=== PATIENT | female | born 1955 | race Caucasian/White ===

== ENCOUNTER → 2020-06-30 08:11 | Outpatient (CLI) | payer MEDICARE, OTHER, SELFPAY ==
[2020-06-30 08:38] LABS: Add Manual Diff / Slide Review NO; Basophils Absolute Auto 0 /uL (0-100); Basophils Percent Auto 1.1 % (0-2); Eosinophils Absolute Auto 100 /uL (0-450); Eosinophils Percent Auto 2.1 % (2-4); Hematocrit 39.8 % (36-46); Hemoglobin 13.5 g/dL (12.0-16.0); Lymphocytes Absolute Auto 1200 /uL (1100-4500); Lymphocytes Percent Auto 27.7 % (25-40); Mean Corpuscular HGB Conc 33.9 % (30-36); Mean Corpuscular Hemoglobin 31.9 PG (26-34); Monocytes Absolute Auto 400 /uL (0-900); Monocytes Percent Auto 9.3 % (3-14); Neutrophils Absolute Auto 2600 /uL (1500-7000); Neutrophils Percent Auto 59.8 % (50-75); Platelet Count 185 X10^3/uL (150-400); Red Blood Cell Count 4.23 X10^6/uL (4.0-5.2); Red Cell Distribution Width 12.4 % (11.6-14.8); White Blood Cell Count 4.4 X10^3/uL (4.5-11.0)
[2020-06-30 09:18] LABS: Alanine Aminotransferase 28 IU/L (<35); Albumin 4.6 g/dL (3.5-5.0); Albumin Globulin Ratio 1.6 (1.0-2.8); Alkaline Phosphatase 95 U/L (38-126); Aspartate Aminotransferase 35 IU/L (14-36); Bilirubin Total 0.8 mg/dL (0.2-1.3); Blood Urea Nitrogen 16 mg/dL (7-17); Calcium 9.8 mg/dL (8.4-10.2); Carbon Dioxide 32 mmol/L (22-32); Chloride 102 mmol/L (98-107); Cholesterol 169 mg/dL (140-199); Estimated Glomerular Filt Rate > 60.0 mL/min (>60); Globulin 2.8 g/dL (1.7-4.1); Glucose 95 mg/dL (80-110); HDL Cholesterol 58 mg/dL (40-60); HEMOLYSIS < 15 (0-50); LDL Cholesterol Calculated 77 mg/dL (<100); Potassium 4.5 mmol/L (3.4-5.1); Sodium 138 mmol/L (137-145); Total Protein 7.4 g/dL (6.3-8.2); Triglycerides 171 mg/dL (35-150)
[2020-06-30 09:49] LABS: TSH w/ Reflex to FT4 7.28 uIU/mL (0.47-4.68)
[2020-06-30 10:33] LABS: Free T4, Direct Thyroxine 0.79 ng/dL (0.78-2.19)
== END ==
PROVIDERS: PCP Family Medicine; Referring Provider Family Medicine; Visit Provider Family Medicine
DX: E78.5 Hyperlipidemia, unspecified (principal); E03.9 Hypothyroidism, unspecified
CPT/HCPCS: 36415; 80053; 80061; 84439; 84443; 85025

== ENCOUNTER → 2020-07-12 15:40 | Outpatient (CLI) | payer MEDICARE, OTHER, SELFPAY | PROVIDERS: PCP Family Medicine; Referring Provider Family Medicine; Visit Provider Family Medicine | DX: M85.852 Other specified disorders of bone density and structure, left thigh (principal); Z78.0 Asymptomatic menopausal state | CPT/HCPCS: 77080 ==

== ENCOUNTER → 2020-07-16 13:41 | Outpatient (CLI) | payer MEDICARE, OTHER, SELFPAY ==
--- NOTE | 2020-07-16 13:52 | DI.MG.S_ITS ---
Patient Name: JINNY MCCAULEY date: 1955 Sex: F Attending Physician: Renny Indications: Date: 07/16/2020 13:44 At the request of: FELICIANO BARNETT Procedure: MM screening mammo BI BILATERAL DIGITAL SCREENING MAMMOGRAM 3D/2D WITH CAD: 07/16/2020 CLINICAL: Routine screening. Comparison is made to exams dated: 07/24/2017 mammogram, 02/22/2016 mammogram, and 10/21/2014 mammogram - [facility]. There are scattered fibroglandular elements in both breasts. Current study was also evaluated with a Computer Aided Detection (CAD) system. No significant masses, calcifications, or other findings are seen in either breast. There has been no significant interval change. IMPRESSION: NEGATIVE There is no mammographic evidence of malignancy. A 1 year screening mammogram is recommended. This exam was interpreted at Station ID: [id number]. NOTE: For mammograms, a report in lay terms will be sent to the patient. Approximately 15% of breast malignancies will not be visualized mammographically. In the management of a palpable breast mass, a negative mammogram must not discourage biopsy of a clinically suspicious lesion. Electronically Signed By: Kiko carpenter/shagufta:07/19/2020 09:59:34 letter sent: Normal Exam ACR BI-RADS Category 1: Negative 3341F
== END ==
PROVIDERS: PCP Family Medicine; Referring Provider Family Medicine; Visit Provider Family Medicine
DX: Z12.31 Encounter for screening mammogram for malignant neoplasm of breast (principal)
CPT/HCPCS: 77063; 77067

== ENCOUNTER → 2020-12-16 08:32 | Outpatient (CLI) | payer MEDICARE, OTHER, SELFPAY ==
[2020-12-16] MEDS: COVID-19 VACC #1, MRNA(MOD) 100 MCG/0.5 ML VIAL IM (08:36)
== END ==
PROVIDERS: PCP Family Medicine; Visit Provider Internal Medicine
DX: Z23 Encounter for immunization (principal)
CPT/HCPCS: 0011A; 91301

== ENCOUNTER → 2021-01-12 09:44 | Outpatient (CLI) | payer MEDICARE, OTHER, SELFPAY ==
[2021-01-12] MEDS: COVID-19 VACC #2, MRNA(MOD) 100 MCG/0.5 ML VIAL IM (09:52)
== END ==
PROVIDERS: PCP Family Medicine; Visit Provider Internal Medicine
DX: Z23 Encounter for immunization (principal)
CPT/HCPCS: 0012A; 91301

== ENCOUNTER → 2021-02-25 09:52 | Outpatient (CLI) | payer MEDICARE, OTHER, SELFPAY ==
[2021-02-25 11:43] LABS: TSH w/ Reflex to FT4 3.65 uIU/mL (0.47-4.68)
== END ==
PROVIDERS: PCP Family Medicine; Referring Provider Family Medicine; Visit Provider Family Medicine
DX: E03.9 Hypothyroidism, unspecified (principal)
CPT/HCPCS: 36415; 84443

== ENCOUNTER → 2021-05-25 09:23 | Outpatient (ROUT) | payer MEDICARE, OTHER, SELFPAY ==
[2021-05-26 14:31] LABS: Fecal Immunochemical Test Negative (Negative)
== END ==
PROVIDERS: PCP Family Medicine; Visit Provider Family Medicine
DX: Z12.11 Encounter for screening for malignant neoplasm of colon (principal); Z80.0 Family history of malignant neoplasm of digestive organs
CPT/HCPCS: 82274

== ENCOUNTER → 2021-08-12 11:15 | Outpatient (CLI) | payer MEDICARE, OTHER, SELFPAY ==
--- NOTE | 2021-08-12 | DI.MG.S_ITS ---
BILATERAL DIGITAL SCREENING MAMMOGRAM 3D/2D WITH CAD: 08/12/2021 CLINICAL: Routine screening. Comparison is made to exams dated: 07/16/2020 mammogram - [facility], 07/24/2017 mammogram, and 02/22/2016 mammogram - [facility]. There are scattered fibroglandular elements in both breasts. Current study was also evaluated with a Computer Aided Detection (CAD) system. No significant masses, calcifications, or other findings are seen in either breast. There has been no significant interval change. IMPRESSION: NEGATIVE There is no mammographic evidence of malignancy. A 1 year screening mammogram is recommended. This exam was interpreted at Station ID: [id number]. NOTE: For mammograms, a report in lay terms will be sent to the patient. Approximately 15% of breast malignancies will not be visualized mammographically. In the management of a palpable breast mass, a negative mammogram must not discourage biopsy of a clinically suspicious lesion. Electronically Signed By: Jose Juan starr/shagufta:08/14/2021 08:00:08 letter sent: Normal Exam ACR BI-RADS Category 1: Negative 3341F
== END ==
PROVIDERS: PCP Family Medicine; Referring Provider Family Medicine; Visit Provider Family Medicine
DX: Z12.31 Encounter for screening mammogram for malignant neoplasm of breast (principal)
CPT/HCPCS: 77063; 77067

== ENCOUNTER → 2021-09-15 10:51 | Outpatient (CLI) | payer MEDICARE, OTHER, SELFPAY ==
[2021-09-15] MEDS: COVID-19 VACC #3, MRNA(MOD) 50 MCG/0.25 ML VIAL IM (11:03)
== END ==
PROVIDERS: PCP Family Medicine; Visit Provider Internal Medicine
DX: Z23 Encounter for immunization (principal)
CPT/HCPCS: 0013A; 91301

== ENCOUNTER → 2022-03-31 11:35 | Outpatient (CLI) | payer MEDICARE, OTHER, SELFPAY ==
[2022-03-31 12:33] LABS: Alanine Aminotransferase 30 IU/L (<35); Albumin 4.5 g/dL (3.5-5.0); Albumin Globulin Ratio 1.7 (1.0-2.8); Alkaline Phosphatase 104 U/L (38-126); Aspartate Aminotransferase 38 IU/L (14-36); BUN Creatinine Ratio 25.3 (6-22); Bilirubin Total 0.4 mg/dL (0.2-1.3); Blood Urea Nitrogen 22 mg/dL (7-17); Calcium 9.6 mg/dL (8.4-10.2); Carbon Dioxide 31 mmol/L (22-32); Chloride 104 mmol/L (98-107); Estimated Glomerular Filt Rate > 60 mL/min (>60); Globulin 2.6 g/dL (1.7-4.1); Glucose 83 mg/dL (80-110); HEMOLYSIS < 15 (0-50); Potassium 4.2 mmol/L (3.4-5.1); Sodium 140 mmol/L (137-145); Total Protein 7.1 g/dL (6.3-8.2)
[2022-03-31 13:04] LABS: TSH w/ Reflex to FT4 4.05 uIU/mL (0.47-4.68)
== END ==
PROVIDERS: PCP Family Medicine; Referring Provider Family Medicine; Visit Provider Family Medicine
DX: E03.9 Hypothyroidism, unspecified (principal)
CPT/HCPCS: 36415; 80053; 84443

== ENCOUNTER → 2022-04-03 15:31 | Outpatient (CLI) | payer MEDICARE, OTHER, SELFPAY ==
[2022-04-03 16:34] LABS: Add Manual Diff / Slide Review NO; Basophils Absolute Auto 0 /uL (0-100); Basophils Percent Auto 0.9 % (0-2); Eosinophils Absolute Auto 100 /uL (0-450); Eosinophils Percent Auto 1.6 % (2-4); Hematocrit 40.9 % (36-46); Lymphocytes Absolute Auto 1300 /uL (1100-4500); Lymphocytes Percent Auto 24.9 % (25-40); Mean Corpuscular HGB Conc 34.2 % (30-36); Mean Corpuscular Hemoglobin 31.9 PG (26-34); Mean Corpuscular Volume 93.2 fL (80-100); Monocytes Absolute Auto 500 /uL (0-900); Monocytes Percent Auto 9.6 % (3-14); Neutrophils Absolute Auto 3200 /uL (1500-7000); Platelet Count 204 X10^3/uL (150-400); Red Blood Cell Count 4.38 X10^6/uL (4.0-5.2); Red Cell Distribution Width 12.8 % (11.6-14.8); White Blood Cell Count 5.1 X10^3/uL (4.5-11.0)
[2022-04-03 17:08] LABS: C-Reactive Protein Quant < 0.5 mg/dL (<1.0)
[2022-04-03 17:51] LABS: Vitamin B12 327 pg/mL (239-931)
== END ==
PROVIDERS: PCP Family Medicine; Referring Provider Family Medicine; Visit Provider Family Medicine
DX: R53.83 Other fatigue (principal); R20.2 Paresthesia of skin
CPT/HCPCS: 36415; 82607; 85025; 86140

== ENCOUNTER → 2022-09-05 11:45 | Outpatient (CLI) | payer MEDICARE, OTHER, SELFPAY | PROVIDERS: PCP Family Medicine; Referring Provider Family Medicine; Visit Provider Family Medicine | DX: Z12.31 Encounter for screening mammogram for malignant neoplasm of breast (principal); Z53.8 Procedure and treatment not carried out for other reasons ==

== ENCOUNTER → 2022-10-18 11:41 | Outpatient (CLI) | payer MEDICARE, OTHER, SELFPAY ==
--- NOTE | 2022-10-18 | DI.MG.S_ITS ---
BILATERAL DIGITAL SCREENING MAMMOGRAM 3D/2D WITH CAD: 10/18/2022 CLINICAL: Routine screening. Comparison is made to exams dated: 08/12/2021 mammogram, 07/16/2020 mammogram - [facility], 07/24/2017 mammogram, and 02/22/2016 mammogram - [facility]. There are scattered areas of fibroglandular density in both breasts (category b / 25%-50% glandular tissue). Current study was also evaluated with a Computer Aided Detection (CAD) system. No significant masses, calcifications, or other findings are seen in either breast. There has been no significant interval change. IMPRESSION: NEGATIVE There is no mammographic evidence of malignancy. A 1 year screening mammogram is recommended. Based on the Tyrer Cuzick model (a risk assessment model) the patient's lifetime risk is 6.9% and her 10 year risk is 3.8%. According to the ACR, ACS, and NCCN guidelines, an annual breast MRI exam along with mammogram is recommended if the patient's lifetime risk is 20% or greater. This exam was interpreted at Station ID: [id number]. NOTE: For mammograms, a report in lay terms will be sent to the patient. Approximately 15% of breast malignancies will not be visualized mammographically. In the management of a palpable breast mass, a negative mammogram must not discourage biopsy of a clinically suspicious lesion. Electronically Signed By: Pete cortez/shagufta:10/18/2022 13:01:34 letter sent: Normal Exam ACR BI-RADS Category 1: Negative 3341F
== END ==
PROVIDERS: PCP Family Medicine; Referring Provider Family Medicine; Visit Provider Family Medicine
DX: Z12.31 Encounter for screening mammogram for malignant neoplasm of breast (principal)
CPT/HCPCS: 77063; 77067

== ENCOUNTER → 2023-08-05 14:07 | Outpatient (CLI) | payer MEDICARE, OTHER, SELFPAY ==
[2023-08-05 14:32] LABS: Specimen Label MYRIAD TEST KIT
== END ==
PROVIDERS: PCP Student in an Organized Health Care Education/Training Program; Referring Provider Student in an Organized Health Care Education/Training Program; Visit Provider Student in an Organized Health Care Education/Training Program
DX: Z13.89 Encounter for screening for other disorder (principal); Z80.41 Family history of malignant neoplasm of ovary; Z80.0 Family history of malignant neoplasm of digestive organs
CPT/HCPCS: 36415

== ENCOUNTER 2023-09-19 12:55 | Day surgery (SDC) | payer MEDICARE, OTHER, SELFPAY ==
--- NOTE | 2023-09-19 | PATH_ITS ---
[facility] Accession Number: [id number] No. of containers..02 Tissue . 01 Material submitted: . PART A: colon - TRANSVERSE POLYP PART B: sigmoid colon - SIGMOID POLYP . 01 Diagnosis: A. Transverse Colon, Polyp: Sessile serrated adenoma with cytological dysplasia; please see comment. No evidence of malignancy. . B. Sigmoid Colon, Polyp: Hyperplastic polyp. [facility] 09/26/2023 1103 Local . 01 Comment: A. Current surveillance guidelines recommend that a sessile serrated adenoma with cytological dysplasia should be managed similar to an advanced adenoma. Complete polypectomy and shortened surveillace interval are recommended. . 01 Electronically signed: . Selina Phelan MD, Pathologist NPI- [id number] . 01 Gross description: . Part A: TRANSVERSE POLYP: Received in formalin is multiple fragment(s) of rodriguez, soft tissue measuring 1.5 x 0.5 x 0.2 cm in aggregate submitted entirely in 1 cassette(s) Part B: SIGMOID POLYP: Received in formalin is multiple fragment(s) of rodriguez, soft tissue measuring 1.2 x 0.5 x 0.1 cm in aggregate submitted entirely in 1 cassette(s) /AAY 09/20/2023 0457 Local . 01 Pathologist provided ICD-10: D12.3 . 01 CPT . 071358, 396415 Specimen Comment: A courtesy copy of this report has been sent to [phone] Performed at: 01 [facility] [address] [place] [address], [place], [place] [id number] MD Jatinder Luis MD Phone: [phone]
[2023-09-19 13:11] VITALS: BMI 24.7
[2023-09-19] MEDS: LACTATED RINGERS 1,000 ML 100 ML IV (13:18)
[2023-09-19 13:21] VITALS: BP 155/80; PULSE 76; RESP 16; TEMP 36.1; O2SAT 99
--- NOTE | 2023-09-19 13:40 | PM.HP.1 ---
History of Present Illness History of Present Illness Date Patient Seen: 09/19/23 Time Patient Seen: 13:40 Chief complaint: Screening Colonoscopy Narrative: Hiral is a 67-year-old woman who is here for a colonoscopy. Her last was 10 years was normal. [facility], [facility] Medical History (Updated 09/19/23 @ 13:41 by Adolph Christopher MD) Plantar warts Pneumonia (~1993) Mumps Measles Chicken pox Cataract (~2013) Abnormal Pap smear of cervix Hemorrhoid (~1991) Hypothyroidism (~2014) Surgical History Anesthesia Adenoma (~1995) History of section (~05/29/92) Family History Father Hyperlipidemia Hypertension Mother No problems noted. Brother No problems noted. Grandfather No problems noted. Grandmother No problems noted. Social History marital status: number of children: 1 household members: none lives independently: Yes pets and animals: No education level: master's degree occupational status: other (retired) Previous occupational history: [employer] Smoking Status: Never smoker alcohol intake: never substance use type: does not use Meds Home Medications and Allergies Home Medications Medication Instructions Recorded Confirmed Type atorvastatin 10 mg tablet See Rx Instructions .Route 03/04/23 09/19/23 Rx .COMPLEX #90 tabs levothyroxine 25 mcg tablet See Rx Instructions .Route 03/04/23 09/19/23 Rx .COMPLEX #90 tabs Allergies Allergy/AdvReac Type Severity Reaction Status Date / Time No Known Drug Allergies Allergy Verified 07/30/23 09:52 Exam Vital Signs (past 8 hours): - 09/19/23 13:21 Temperature 97.0 F L Pulse Rate 76 Respiratory Rate 16 Blood Pressure 155/80 H Pulse Oximetry 99 Oxygen Delivery Method Room Air Oxygen Delivery Method Room Air Const General: healthy appearing Resp Effort & Inspection: normal respiratory effort Assessment & Plan Assessment and plan (1) Colon cancer screening: Status: Acute Plan We reviewed the risks and benefits of a screening colonoscopy and she would like to proceed.
--- NOTE | 2023-09-19 14:58 | PM.OP.COLON ---
Operative Date/Time/Diagnoses Date of procedure: 09/19/23 Time of procedure: 14:59 Pre-op diagnosis: Colon cancer screening Post-op diagnosis: same Procedure & Clinicians Study performed: Colonoscopy Same procedure as scheduled: Yes Surgeon: Adolph Christopher Procedure Notes Procedure in detail: Surgeon: Adolph Christopher MD Anesthesia: Tracie Niño CRNA Procedure: The patient was brought to the endoscopy suite, placed in left lateral decubitus position. The patient was connected to monitoring devices. A time-out was performed. Sedation was administered. Once the patient was adequately sedated, a digital rectal exam was performed and was normal. The scope was then inserted and advanced to the cecum where the appendiceal orifice was identified and photographed. The scope was then slowly withdrawn over greater than 6 minutes. The mucosa was thoroughly inspected. There was a 1 cm polyp in the proximal transverse colon removed with a cold snare into passes. There was a 5 mm polyp in the sigmoid removed with cold snare. The scope was retroflexed in the rectum. No other abnormalities were seen. The scope was straightened and removed. The patient was awakened and brought to recovery. Scope withdrawal time: 17 minutes Sedation time: 21 minutes EBL: 2 mL Findings: 1 cm polyp in the proximal transverse colon and 5 mm polyp in the sigmoid colon Post-procedure Disposition: PACU
[2023-09-19 15:00] VITALS: BP 101/65; PULSE 61; RESP 14; TEMP 36.8; O2SAT 97
[2023-09-19 15:05] VITALS: BP 108/71; PULSE 63; RESP 17; O2SAT 100
[2023-09-19 15:10] VITALS: BP 116/68; PULSE 66; RESP 16; TEMP 37.1; O2SAT 100
[2023-09-19 15:25] VITALS: BP 112/73; PULSE 63; RESP 16; TEMP 36.8; O2SAT 100
== END 2023-09-19 15:30 | disposition home or self-care (01) ==
PROVIDERS: PCP Student in an Organized Health Care Education/Training Program; Referring Provider Surgery; Visit Provider Surgery
PROC: 0DJD8ZZ Inspection of Lower Intestinal Tract, Via Natural or Artificial Opening Endoscopic (ICD-10-PCS; CPT 45378; principal; 2023-09-19 14:00)
DX: Z12.11 Encounter for screening for malignant neoplasm of colon (principal); D12.3 Benign neoplasm of transverse colon; K63.5 Polyp of colon
CPT/HCPCS: 45385; J2704

== ENCOUNTER → 2023-10-19 10:21 | Outpatient (CLI) | payer MEDICARE, OTHER, SELFPAY ==
--- NOTE | 2023-10-19 | DI.MG.S_ITS ---
BILATERAL DIGITAL SCREENING MAMMOGRAM 3D/2D WITH CAD: 10/19/2023 CLINICAL: Routine screening. Comparison is made to exams dated: 10/18/2022 mammogram, 08/12/2021 mammogram, and 07/16/2020 mammogram - [facility]. There are scattered areas of fibroglandular density in both breasts (category b / 25%-50% glandular tissue). Current study was also evaluated with a Computer Aided Detection (CAD) system. No significant masses, calcifications, or other findings are seen in either breast. There has been no significant interval change. IMPRESSION: NEGATIVE There is no mammographic evidence of malignancy. A 1 year screening mammogram is recommended. Based on the Tyrer Cuzick model (a risk assessment model) the patient's lifetime risk is 6.5% and her 10 year risk is 3.9%. According to the ACR, ACS, and NCCN guidelines, an annual breast MRI exam along with mammogram is recommended if the patient's lifetime risk is 20% or greater. This exam was interpreted at Station ID: [id number]. NOTE: For mammograms, a report in lay terms will be sent to the patient. Approximately 15% of breast malignancies will not be visualized mammographically. In the management of a palpable breast mass, a negative mammogram must not discourage biopsy of a clinically suspicious lesion. Electronically Signed By: Gavino rodriguez/shagufta:10/21/2023 13:14:32 letter sent: Normal Exam ACR BI-RADS Category 1: Negative 3341F
== END ==
PROVIDERS: PCP Student in an Organized Health Care Education/Training Program; Referring Provider Student in an Organized Health Care Education/Training Program; Visit Provider Student in an Organized Health Care Education/Training Program
DX: Z12.31 Encounter for screening mammogram for malignant neoplasm of breast (principal)
CPT/HCPCS: 77063; 77067

== ENCOUNTER 2024-03-12 11:17 | Day surgery (SDC) | payer MEDICARE, OTHER, SELFPAY ==
--- NOTE | 2024-03-12 | PATH_ITS ---
[facility] Accession Number: [id number] No. of containers..02 Tissue . 01 Material submitted: . PART A: colon - ASCENDING POLYP PART B: colon - SIGMOID POLYP . 01 Diagnosis: A. COLON, ASCENDING, POLYPECTOMY: Sessile serrated lesion/adenoma. . B. COLON, SIGMOID, POLYPECTOMY: Hyperplastic polyp. [facility] 03/18/2024 1549 Local . 01 Electronically signed: . Angel Kincaid MD, Pathologist NPI- [id number] . 01 Gross description: . A. Received in formalin with two identifiers and ascending polyp, is a rodriguez soft tissue fragment 0.7 cm in greatest dimension. Submitted in cassette A1. B. Received in formalin with two identifiers and sigmoid polyp, is a rodriguez soft tissue fragment 0.3 cm in greatest dimension. Submitted in cassette B1. ([id number]) /DONNY 03/15/2024 2209 Local . 01 Pathologist provided ICD-10: Z86.010 . 01 CPT . 692443, 588100 Specimen Comment: A courtesy copy of this report has been sent to [phone] Performed at: 01 [facility] [address] [place] [address] [address], [place], [place] [id number] MD Jatinder Luis MD Phone: [phone]
[2024-03-12 11:36] VITALS: BMI 24.8
[2024-03-12] MEDS: LACTATED RINGERS 1,000 ML 42 ML IV (11:42)
--- NOTE | 2024-03-12 12:01 | P.HP_ITS ---
History of Present Illness History of Present Illness Date Patient Seen: 03/12/24 Time Patient Seen: 12:01 Chief complaint: Dx Colonosopy w/poss bx Narrative: Hiral is a 68-year-old woman who had a colonoscopy in September with removal of 2 polyps. One of the polyps turned out to be a sessile serrated adenoma with dysplasia. She returns for her first surveillance colonoscopy. She has had no significant changes since then. [facility] Medical History (Updated 03/12/24 @ 12:03 by Adolph Christopher MD) History of adenomatous polyp of colon Plantar warts Pneumonia (~1993) Mumps Measles Chicken pox Cataract (~2013) Abnormal Pap smear of cervix Hemorrhoid (~1991) Hypothyroidism (~2014) Surgical History Anesthesia Adenoma (~1995) History of section (~05/29/92) Family History Father Hyperlipidemia Hypertension Mother No problems noted. Brother No problems noted. Grandfather No problems noted. Grandmother No problems noted. Social History marital status: number of children: 1 household members: none lives independently: Yes pets and animals: No education level: master's degree occupational status: other (retired) Previous occupational history: [employer] Smoking Status: Never smoker alcohol intake: never substance use type: does not use Meds Home Medications and Allergies Home Medications Medication Instructions Recorded Confirmed Type atorvastatin 10 mg tablet See Rx Instructions .Route 09/24/23 Rx .COMPLEX #90 tabs levothyroxine 25 mcg tablet See Rx Instructions .Route 09/24/23 Rx .COMPLEX #90 tabs sodium,potassium,mag sulfates 17.5 See Rx Instructions PO .COMPLEX 02/06/24 Rx gram-3.13 gram-1.6 gram oral soln #354 mL (Suprep Bowel Prep Kit) Allergies Allergy/AdvReac Type Severity Reaction Status Date / Time No Known Drug Allergies Allergy Verified 07/30/23 09:52 Exam Const General: No acute distress Resp Effort & Inspection: normal respiratory effort Assessment & Plan Assessment and plan (1) History of adenomatous polyp of colon: Status: Acute Plan We discussed the risks and benefits of colonoscopy and she would like to proceed.
--- NOTE | 2024-03-12 12:33 | PM.OP.COLON ---
Operative Date/Time/Diagnoses Date of procedure: 03/12/24 Time of procedure: 12:33 Pre-op diagnosis: History of sessile serrated adenoma with high-grade dysplasia Post-op diagnosis: same Procedure & Clinicians Study performed: Colonoscopy Same procedure as scheduled: Yes Surgeon: Adolph Christopher Procedure Notes Procedure in detail: Surgeon: Adolph Christopher MD Anesthesia: Farheen Dangelo PHYSICIAN OFFICE NURSE Procedure: The patient was brought to the endoscopy suite, placed in left lateral decubitus position. The patient was connected to monitoring devices. A time-out was performed. Sedation was administered. Once the patient was adequately sedated, a digital rectal exam was performed and was normal. The scope was then inserted and advanced to the cecum where the appendiceal orifice was identified and photographed. The scope was then slowly withdrawn over greater than 6 minutes. The mucosa was thoroughly inspected. There was a small polyp in the ascending colon, roughly 5 mm, removed with was removed with the Jumbo forceps. There was no evidence of residual polyp in the proximal transverse colon. There was another 5 mm polyp in the sigmoid colon removed with a cold forceps. The scope was retroflexed in the rectum. No other abnormalities were seen. The scope was straightened and removed. The patient was awakened and brought to recovery. Scope withdrawal time: 11 minutes Sedation time: 19 minutes EBL: 5 mL Findings: Small polyp in the ascending colon and sigmoid colon, no evidence of residual polyp in the transverse Post-procedure Disposition: PACU
[2024-03-12 12:35] VITALS: BP 94/63; PULSE 67; RESP 18; TEMP 36.3; O2SAT 96
[2024-03-12 12:40] VITALS: BP 109/75; PULSE 65; RESP 13; O2SAT 100
[2024-03-12 12:44] VITALS: BP 109/75; PULSE 61; RESP 15; O2SAT 100
[2024-03-12 12:50] VITALS: BP 108/72; PULSE 59; RESP 16; O2SAT 100
== END 2024-03-12 13:30 | disposition home or self-care (01) ==
PROVIDERS: PCP Student in an Organized Health Care Education/Training Program; Referring Provider Surgery; Visit Provider Surgery
PROC: 0DJD8ZZ Inspection of Lower Intestinal Tract, Via Natural or Artificial Opening Endoscopic (ICD-10-PCS; CPT 45378; principal; 2024-03-12 12:00)
DX: Z12.11 Encounter for screening for malignant neoplasm of colon (principal); Z86.010 Personal history of colon polyps; D12.2 Benign neoplasm of ascending colon; K63.5 Polyp of colon
CPT/HCPCS: 45380; J2704

== ENCOUNTER → 2024-11-09 14:30 | Outpatient (CLI) | payer MEDICARE, OTHER, SELFPAY ==
--- NOTE | 2024-11-09 14:32 | DI.MG.S_ITS ---
BILATERAL DIGITAL SCREENING MAMMOGRAM 3D/2D WITH CAD: 11/09/2024 CLINICAL: Routine screening. Comparison is made to exams dated: 10/19/2023 mammogram, 10/18/2022 mammogram, and 08/12/2021 mammogram - [facility]. There are scattered areas of fibroglandular density (category b / 25%-50% glandular tissue). Current study was also evaluated with a Computer Aided Detection (CAD) system. There are benign calcifications in the right breast. No significant masses, calcifications, or other findings are seen in either breast. There has been no significant interval change. IMPRESSION: BENIGN There is no mammographic evidence of malignancy. A 1 year screening mammogram is recommended. Based on the Tyrer Cuzick model (a risk assessment model) the patient's lifetime risk is 6.2% and her 10 year risk is 3.9%. According to the ACR, ACS, and NCCN guidelines, an annual breast MRI exam along with mammogram is recommended if the patient's lifetime risk is 20% or greater. This exam was interpreted at Station ID: [id number]. NOTE: For mammograms, a report in lay terms will be sent to the patient. Approximately 15% of breast malignancies will not be visualized mammographically. In the management of a palpable breast mass, a negative mammogram must not discourage biopsy of a clinically suspicious lesion. Electronically Signed By: Martha sampson/shagufta:11/09/2024 16:29:52 letter sent: Normal Exam ACR BI-RADS Category 2: Benign
== END ==
LOC: MAMMO 14:31
PROVIDERS: PCP Student in an Organized Health Care Education/Training Program; Referring Provider Student in an Organized Health Care Education/Training Program; Visit Provider Student in an Organized Health Care Education/Training Program
DX: Z12.31 Encounter for screening mammogram for malignant neoplasm of breast (principal)
CPT/HCPCS: 77063; 77067

== ENCOUNTER → 2024-12-24 15:05 | Outpatient (CLI) | payer MEDICARE, OTHER, SELFPAY ==
[2024-12-24 16:40] LABS: TSH w/ Reflex to FT4 3.56 uIU/mL (0.47-4.68)
[2024-12-24 16:45] LABS: Rubella Antibody IgG > 350.0 IU/mL (>15)
== END ==
LOC: LAB 15:06
PROVIDERS: PCP Student in an Organized Health Care Education/Training Program; Referring Provider Student in an Organized Health Care Education/Training Program; Visit Provider Student in an Organized Health Care Education/Training Program
DX: E03.9 Hypothyroidism, unspecified (principal); Z78.9 Other specified health status
CPT/HCPCS: 36415; 84443; 86707; 86735; 86762; 86765

== ENCOUNTER → 2025-02-02 09:03 | Outpatient (CLI) | payer MEDICARE, OTHER, SELFPAY ==
--- NOTE | 2025-02-02 09:04 | DI.MG.S_ITS ---
MM diagnostic mammo unilat LT: 02/02/2025. BI-RADS: 1 CLINICAL: 69-year old female for left diagnostic mammogram. Patient reports diffuse pain that first started in the medial breast, and is now in the lateral breast. Patient also reports that her breast seems to sit more lateral and has shifted compared to before. Tyrer-Cuzick lifetime risk of 4.7%. No personal or first-degree family history of breast cancer. History of ovarian cancer in one first-degree relative. The patient reports testing negative for BRCA gene mutation. PRIOR EXAMS 11/09/2024, 10/19/2023, 10/18/2022, 08/12/2021, 07/16/2020. MAMMOGRAPHY TECHNIQUE: 2D and 3D (tomosynthesis) digital mammographic views obtained, with additional images as needed for full coverage. Current study was also evaluated with a Computer Aided Detection (CAD) system. DENSITY Left: B. There are scattered areas of fibroglandular density. MAMMOGRAPHY FINDINGS Left: There is no suspicious mammographic finding to account for concern by the patient. No suspicious mass, asymmetry, microcalcification, or other abnormality seen. No significant interval change compared to priors. IMPRESSION: Left * No evidence of malignancy. RECOMMENDATIONS Left * Diffuse, non-focal symptoms, such as pain or fullness are typically benign. Clinical follow-up is recommended, and further management of these symptoms should be based on the results of clinical evaluation. If diffuse symptoms persist or become more focal in nature, further clinical evaluation should be considered. Bilateral * Annual screening mammography in nine months. OVERALL ASSESSMENT CATEGORY BI-RADS-1: Negative. The [employer] recommends annual screening mammography beginning at age 40 for women with average risk of breast cancer. ELECTRONICALLY SIGNED: Guadalupe Singer M.D. on 02/02/2025 at 10:37:16 AM PT Interpreting Station ID: [id number]
== END ==
PROVIDERS: PCP Student in an Organized Health Care Education/Training Program; Referring Provider Student in an Organized Health Care Education/Training Program; Visit Provider Student in an Organized Health Care Education/Training Program
DX: N64.4 Mastodynia (principal); R92.322 Mammographic fibroglandular density, left breast; Z80.41 Family history of malignant neoplasm of ovary
CPT/HCPCS: 77065; G0279